=== PATIENT | male | born 1950 | race Caucasian/White ===

== ENCOUNTER → 2022-05-22 | Outpatient (CLI) | payer MEDICARE ==
--- NOTE | 2022-05-22 15:38 | MR ---
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 Neck pain, pain in fingers. COMPARISON: Radiographs 03/21/2022 TECHNIQUE: Multi planar, multi sequence imaging was performed utilizing: T1-weighted, T2-weighted, an d turbo inversion recovery imaging of the cervical spine. IV Contrast: None FINDINGS: Alignment: The cervical vertebral bodies have preserved heights. Alignment is within normal limits gi asa patient positioning. Bones: Multilevel disc degeneration changes worse at C6 and C7. Sclerotic endplate changes at this le dominique. Cord: The spinal cord is unremarkable with regards to their signal intensity and morphology. Discs: Multilevel disc desiccation is present. C2-C3: No significant disc pathology. The spinal canal is patent. Bilateral facet and uncovertebral joint arthropathy are present with moderate right neural foraminal stenosis. The left neural foramen is patent. C3-C4: No significant disc pathology. The spinal canal is patent. Bilateral facet and uncovertebral joint arthropathy are present with moderate right and mild left neural foraminal stenosis. C4-C5: No significant disc pathology. The spinal canal is patent. Bilateral facet and uncovertebral joint arthropathy are present with severe right and mild left neural foraminal stenosis. C5-C6: No significant disc pathology. The spinal canal is patent. Bilateral facet and uncovertebral joint arthropathy are present with moderate bilateral neural foraminal stenosis. C6-C7: No significant disc pathology. The spinal canal is patent. Bilateral facet and uncovertebral joint arthropathy are present with moderate bilateral neural foraminal stenosis. C7-T1: No significant disc pathology. The spinal canal is patent. No neural foraminal stenosis. IMPRESSION: 1. No evidence for disc herniation or significant spinal canal stenosis. 2. Multilevel disc degeneration with associated osteoarthritic changes resulting in varying degrees o f neural foraminal stenosis, worse at: Severe severe right C4-C5, moderate bilateral C5-C6, moderate bilateral C6-C7, moderate right C2-C3.
== END | disposition home or self-care (01) ==
LOC: RADMRIMAIN 14:24
PROVIDERS: ATTEND Internal Medicine
DX: M47.812 Spondylosis without myelopathy or radiculopathy, cervical region (principal); M50.323 Other cervical disc degeneration at C6-C7 level; M99.71 Connective tissue and disc stenosis of intervertebral foramina of cervical region
CPT/HCPCS: 72141

== ENCOUNTER 2023-05-10 20:08 | Emergency (ER) | payer MEDICARE ==
[2023-05-10] MEDS ORDERED: ASPIRIN 81 MG PO STA (21:09)
[2023-05-10] MEDS ORDERED: GABAPENTIN 400 MG CAP PO STA (21:21)
--- NOTE | 2023-05-10 21:22 | ED ---
Chest Pain HPI - General Chief Complaint: Chest Pain Stated Complaint: Chest Pain Time Seen by Provider: 05/10/23 21:09 Source: patient Mode of arrival: EMS Limitations: no limitations - History of Present Illness Initial Comments: This patient is 73-year-old man who presents to have evaluation of left-sided chest pain. He states that it came on around 7 PM while he was sitting. He states the pain was a very intense, sharp, left-sided chest pain that lasted on the order of a second. He states he had 2 further episodes of that in rapid succession. He did not note any associated symptoms. The symptoms have resolved. After the third episode he called EMS and they brought him for evaluation. The patient has had aspirin. MD Complaint: chest pain Onset/Timin -: hour(s) Onset: during rest Pain Location: left chest Pain Radiation: none Severity: severe Quality: sharp Consistency: intermittent Improves With: nothing Worsens With: nothing Treatments Prior to Arrival: aspirin - Related Data Allergies Allergy/AdvReac Type Severity Reaction Status Date / Time amoxicillin Allergy Severe Anaphylaxis Verified 05/10/23 21:06 Review of Systems ROS Statement: Those systems with pertinent positive or pertinent negative responses have been documented in the HPI. ROS Other: All systems not noted in ROS Statement are negative. Constitutional: Denies: fever, chills, weakness Respiratory: Denies: cough, dyspnea, wheezes Cardiovascular: Reports: as per HPI, chest pain. Denies: palpitations, orthopnea, edema, syncope Gastrointestinal: Denies: abdominal pain, nausea, vomiting Genitourinary: Denies: dysuria, hematuria Musculoskeletal: Denies: back pain Skin: Denies: rash Neurological: Denies: headache, weakness EKG Findings - EKG Results: EKG: interpreted by ERMD, sinus rhythm EKG shows: bradycardia (Rate 59 bpm) - Blocks, Russell, Hypertrophy, ST Abn: AV and intraventricular conduction: right bundle branch block (fixed/intermittent, complete/incomplete) (Incomplete), left anterior fascicular block Past Medical History Past Medical History: Liver Disease History of Any Multi-Drug Resistant Organisms: None Reported Past Surgical History: Back Surgery, Hernia Repair, Tonsillectomy Past Psychological History: No Psychological Hx Reported Smoking Status: Current every day smoker Past Alcohol Use History: None Reported Past Drug Use History: None Reported General Exam Limitations: no limitations General appearance: alert, in no apparent distress Head exam: Present: atraumatic, normocephalic Eye exam: Present: normal appearance. Absent: scleral icterus, conjunctival injection Neck exam: Present: normal inspection Respiratory exam: Present: normal lung sounds bilaterally. Absent: respiratory distress, wheezes, rales, rhonchi, stridor, chest wall tenderness Course Vital Signs 05/10/23 05/10/23 05/11/23 20:09 22:00 03:30 Temperature 97.7 F 98.2 F 98.1 F Pulse Rate 65 88 Respiratory 18 18 Rate Blood Pressure 133/77 105/61 O2 Sat by Pulse 98 99 Oximetry Chest Pain MDM - MDM The patient had chest x-ray which I interpreted as negative for acute infiltrate, pneumothorax, congestive heart failure Was pt. sent in by a medical professional or institution (TALIA Maldonado, [facility], urgent care, hospital, or custodial...) When possible be specific @ -[No] Did you speak to anyone other than the patient for history (EMS, parent, family, police, friend...)? What history was obtained from this source @ -[No] Did you review nursing and triage notes (agree or disagree)? Why? @ -[I reviewed and agree with nursing and triage notes] Were old charts reviewed (outside hosp., previous admission, EMS record, old EKG, old radiological studies, urgent care reports/EKG's, custodial records)? Report findings @ -[No old charts were reviewed] Differential Diagnosis (chest pain, altered mental status, abdominal pain women, abdominal pain men, vaginal bleeding, weakness, fever, dyspnea, syncope, headache, dizziness, GI bleed, back pain, seizure, CVA, palpatations, mental health, musculoskeletal)? @ -[Differential Chest Pain: Stable Angina, Unstable Angina, STEMI, NSTEMI Aortic Dissection, Pneumothorax, Musculoskeletal, Esophageal Spasm GERD, Cholecystitis, Pancreatitis, Zoster, this is not meant to be an all-inclusive list. EKG interpreted by me (3pts min.). @ -I interpreted As above] X-rays interpreted by me (1pt min.). @ -[I interpreted as above CT interpreted by me (1pt min.). @ -[None done] U/S interpreted by me (1pt. min.). @ -[None done] What testing was considered but not performed or refused? (CT, X-rays, U/S, la bs)? Why? @ -[None] What meds were considered but not given or refused? Why? @ -[None] Did you discuss the management of the patient with other professionals (professionals i.e. , PA, [employer]ER, lab, RT, psych nurse, director social service, mutton puncher, teacher, consular officer, watch caser)? Give summary @ -[No] Was smoking cessation discussed for >3mins.? @ -[No] Was critical care preformed (if so, how long)? @ -[No] Were there social determinants of health that impacted care today? How? (Homelessness, low income, unemployed, alcoholism, drug addiction, transportation, low edu. Level, literacy, decrease access to med. care, longterm, rehab)? @ -[No] Was there de-escalation of care discussed even if they declined (Discuss DNR or withdrawal of care, Hospice)? DNR status @ -[No] What co-morbidities impacted this encounter? (DM, HTN, Smoking, COPD, CAD, Cancer, CVA, ARF, Chemo, Hep., AIDS, mental health diagnosis, sleep apnea, morbid obesity)? @ -[None] Was patient admitted / discharged? Hospital course, mention meds given and route, prescriptions, significant lab abnormalities, going to OR and other pe rtinent info. @ -[This patient is 73-year-old man presenting to have evaluation of 3 brief sharp episodes of chest pain lasting only approximately a second or so. His physical exam and workup are unremarkable. At this point the patient is feeling well and wishes to go home. We discussed appropriate further care and follow- up as well as return parameters. Undiagnosed new problem with uncertain prognosis? @ -[No] Drug Therapy requiring intensive monitoring for toxicity (Heparin, Nitro, Insulin, Cardizem)? @ -[No] Were any procedures done? @ -[No] Diagnosis/symptom? @ -[aCute atypical chest pain Acute, or Chronic, or Acute on Chronic? @ -[default] Uncomplicated (without systemic symptoms) or Complicated (systemic symptoms)? @ -[Uncomplicated Side effects of treatment? @ -[No] Exacerbation, Progression, or Severe Exacerbation? @ -[No] Poses a threat to life or bodily function? How? (Chest pain, [place], [place], pneumonia, PE, COPD, DKA, ARF, appy, cholecystitis, CVA, Diverticulitis, Homicidal, Suicidal, threat to staff... and all critical care pts) @ -[No] Disposition Clinical Impression: Atypical chest pain Disposition: HOME SELF-CARE Condition: Good Instructions (If sedation given, give patient instructions): Chest Pain (ED) Is patient prescribed a controlled substance at d/c from ED?: No Referrals: Manoj Garvin MD [Primary Care Provider] - 1-2 days Azar Arizmendi MD [STAFF PHYSICIAN] - 1-2 days
[2023-05-10 21:32] VITALS: RESP 18
[2023-05-10 21:33] LABS: Basophils # (A) 0.1 k/uL (0-0.2); Basophils % (A) 1 %; Eosinophils # (A) 0.7 k/uL (0-0.7); Eosinophils % (A) 6 %; HCT 37.2 % (39.0-53.0); HGB 12.6 gm/dL (13.0-17.5); Lymphocytes % (A) 28 %; MCH 32.9 pg (25.0-35.0); MCV 96.7 fL (80.0-100.0); Mean Platelet Volume 8.8; Monocytes # (A) 0.9 k/uL (0-1.0); Monocytes % (A) 9 %; Neutrophils # (A) 5.8 k/uL (1.3-7.7); Neutrophils % (A) 55 %; Platelet Count 285 k/uL (150-450); RBC 3.84 m/uL (4.30-5.90); RDW 12.7 % (11.5-15.5); WBC 10.7 k/uL (3.8-10.6)
[2023-05-10 21:44] LABS: ALT 18 U/L (4-49); AST 21 U/L (17-59); African American GFR (CKD) >90 (>60 ml/min/1.73 sqM); Albumin 3.5 g/dL (3.5-5.0); Alkaline Phosphatase 83 U/L (38-126); Anion Gap 7 mmol/L; Blood Urea Nitrogen 5 mg/dL (9-20); Calcium 8.5 mg/dL (8.4-10.2); Carbon Dioxide 25 mmol/L (22-30); Chloride 106 mmol/L (98-107); Glucose 68 mg/dL (74-99); Magnesium 1.9 mg/dL (1.6-2.3); Non-African American GFR(CKD) >90 (>60 ml/min/1.73 sqM); Potassium 3.7 mmol/L (3.5-5.1); Sodium 138 mmol/L (137-145); Total Bilirubin 0.3 mg/dL (0.2-1.3); Total Protein 6.2 g/dL (6.3-8.2)
[2023-05-10 22:18] LABS: INR 0.9 (<1.2); Partial Thromboplastin Time 27.5 sec (22.0-30.0); Prothrombin Time 10.5 sec (10.0-12.5)
--- NOTE | 2023-05-11 01:56 | XR ---
EXAMINATION TYPE: XR chest 2V DATE OF EXAM: 05/10/2023 9:29 PM CLINICAL INDICATION:Male, 73 years old with history of Chest Pain; [facility] COMPARISON: CT chest from 02/17/2013 TECHNIQUE: XR chest 2V. Frontal PA and lateral views of the chest. FINDINGS: Lines/Tubes: EKG leads overlie the chest. No indwelling lines are seen. Heart/mediastinum: Cardiomediastinal silhouette is unremarkable. Heart size is normal. Atherosclero tic calcifications are seen in the aorta. Pulmonary vascularity: Not increased, Lungs/Pleura: There is hyperinflation with flattening of the diaphragm with increased lucency of the lungs. No evidence of pneumothorax, pleural effusion or focal consolidation. Musculoskeletal: No acute osseous abnormality demonstrated in the limits of the exam. Mild degenerat manuel changes of the spine and shoulders. Other findings: None. IMPRESSION: No acute cardiopulmonary abnormality. Changes of COPD suggested, without evidence of acute superimposed airspace disease.
[2023-05-11 03:38] VITALS: BP 105/61; PULSE 88; TEMP 98.1
== END 2023-05-11 03:32 | disposition home or self-care (01) ==
LOC: EC 20:08
DX: R07.89 Other chest pain (principal); F17.200 Nicotine dependence, unspecified, uncomplicated; Z88.0 Allergy status to penicillin
CPT/HCPCS: 36415; 71046; 80053; 83735; 84484; 85025; 85610; 85730; 93005; 99285